=== PATIENT | female | born 1980 | race African-American/Black ===

== ENCOUNTER 2018-12-14 11:19 | Outpatient (RCR) | payer MEDICAID | END 2019-02-23 | disposition home or self-care (01) | LOC: CR 11:19 | PROVIDERS: ATTEND Internal Medicine | DX: I50.9 Heart failure, unspecified (principal) | CPT/HCPCS: 93798 ==

== ENCOUNTER 2019-05-01 11:16 | Outpatient (RCR) | payer MEDICAID | END 2019-06-22 | disposition home or self-care (01) | LOC: CR 11:16 | PROVIDERS: ATTEND Internal Medicine | DX: I50.9 Heart failure, unspecified (principal); Z95.811 Presence of heart assist device | CPT/HCPCS: 93798 ==